=== PATIENT | female | born 1955 | race Caucasian/White ===

== ENCOUNTER → 2024-12-01 | Outpatient (CLI) | payer MEDICARE, OTHER ==
[~2024-12-01] VITALS: Ht 167.6 cm; Wt 113.4 kg
[~2024-12-01] MED LIST: ASPI81CH43; ATEN-60; FLUT250M9; METF-370; PAXIL; PROVENTIL; SIMV20TA20
[2024-12-01] MEDS: REGADENOSON 0.4 MG/5 ML SYRG IV ONE ×2 (10:03→10:15)
--- NOTE | 2024-12-01 14:01 | DVHSR ---
APPROVED REPORT Exam: Nuclear Stress Test BMI: 0 Stress Test Details HR Max Heart Rate (APMHR): 152.073630 bpm Target HR (85% APMHR): 129.348603 bpm BP ECG Stress ECG Conclusion lvef65% breast artifact noted no severe ischemia noted NM EXAM: Myocardial Perfusion REST/STRESS Imaging Protocol: Rest Tc-99m/Stress Tc-99m 1 day Resting Data Rest SPECT myocardial perfusion imaging was performed in supine position 60 minutes following the int ravenous injection of 10.3 mCi of Tc-99m Sestamibi. Time of rest injection: 08:12 Date: 12/01/2024 Time of rest imagin:12 Date: 12/01/2024 Administration Route: IV Administration Site: Left Hand Pharmacologic Stress Pharmacologic stress test was performed by injecting Regadenoson 0.4 mg IV push followed by the intra venous injection of 32.6 mCi of Tc-99m Sestamibi. Time of stress injection: 10:00 Date: 12/01/2024 Time of stress imagin:00 Date: 12/01/2024 Administration Route: IV Administration Site: Left Hand Gated Stress SPECT was performed 60 minutes after stress injection. The images were gated to evaluate regional wall motion and calculate left ventricular ejection fracti on. Stress only was performed in the Supine position. Nuclear Conclusion Nuclear Findings: negative for ischemia lvef65% breast artifact noted no severe ischemia noted
== END | disposition home or self-care (01) ==
LOC: XYW 08:26
PROVIDERS: ATTEND Specialist
DX: I12.9 Hypertensive chronic kidney disease with stage 1 through stage 4 chronic kidney disease, or unspecified chronic kidney disease (principal); N18.9 Chronic kidney disease, unspecified; Z79.899 Other long term (current) drug therapy
CPT/HCPCS: 78452; 93017; A9500; J2785